=== PATIENT | male | born 1985 | race Hispanic/Latino ===

== ENCOUNTER 2022-03-23 16:34 | Emergency (ER) | payer SELFPAY ==
--- NOTE | ~2022-03-23 | XR_ITS ---
EXAM: XR foot LT min 3V DATE: 03/23/2022 17:48 HISTORY: lac to L foot, r/o FB . COMPARISON: None available. FINDINGS: Normal mineralization. No fracture or dislocation. No lytic or blastic lesion. Joint space s are maintained. No erosion or periosteal change. Soft tissues within normal limits. IMPRESSION: No acute osseous finding in the left foot. Reviewed, dictated and finalized at location K.
--- NOTE | ~2022-03-23 | CT_ITS ---
EXAMINATION: CT brain wo con DATE: 03/23/2022 17:57 INDICATION: fall, HI, possible LOC . TECHNIQUE: Computed tomography (CT) of the head was performed without intravenous contrast. The mA wa s adjusted according to patient size. Iterative reconstruction technique was employed. The dose-lengt h product was 605.33 mGy-cm. COMPARISON: None FINDINGS: No acute intracranial hemorrhage or extra-axial fluid collection. No hydrocephalus, mass, or herniation. No acute ischemic infarct. Unremarkable dural venous sinus attenuation. No acute osseous abnormality. The aerated spaces are clear. IMPRESSION: No acute intracranial process. Reviewed, dictated and finalized at location K.
--- NOTE | ~2022-03-23 | XR_ITS ---
EXAM: XR hip LT 2V w AP pelvis DATE: 03/23/2022 17:48 HISTORY: L hip pain s/p fall, lac to foot . COMPARISON: None available. FINDINGS: Normal mineralization. No fracture or dislocation. No lytic or blastic lesion. Joint space s are maintained. No erosion or periosteal change. Soft tissues within normal limits. IMPRESSION: No acute osseous finding in the left hip or pelvis. Reviewed, dictated and finalized at location K.
--- NOTE | ~2022-03-23 | CT_ITS ---
EXAMINATION: CT cervical spine wo con DATE: 03/23/2022 17:57 INDICATION: fall, HI TECHNIQUE: Computed tomography (CT) of the cervical spine was performed without intravenous contrast. Automated exposure control and iterative reconstruction technique were employed. The dose-length pro duct was 436.86 mGy-cm. COMPARISON: None FINDINGS: Vertebral Body Alignment: Intact. Craniocervical and atlantoaxial alignment: No significant degenerative change. Alignment intact. 3 mm side to side difference in lateral atlantodental intervals, which is within normal limits and consis tent with head rotation. Osseous structures/fracture: No evidence of a lytic or blastic process in the visualized spine. No e vidence of acute fracture. Cervical soft tissues: The paraspinal soft tissues planes are maintained. Degenerative changes: Degenerative changes, without severe neural foraminal or central canal narrowin g. IMPRESSION: No acute fracture or traumatic malalignment in the cervical spine. Reviewed, dictated and finalized at location K.
[2022-03-23 16:37] VITALS: BP 118/72; PULSE 93; RESP 14; TEMP 36.7; O2SAT 98
--- NOTE | 2022-03-23 17:34 | ED.GENADULT ---
HPI - General Adult General Chief complaint: Extremity Injury, Lower Stated complaint: Leg Extremity Time Seen by Provider: 03/23/22 16:57 Source: patient and family Mode of arrival: EMS Limitations: no limitations and language barrier History of Present Illness HPI narrative: Patient is a 36-year-old male who presents to the ED via EMS with report of a laceration to his left plantar foot, near his 1st toe. Patient is primarily Syriac-speaking, family member at bedside assisted in translation. Patient [place] he tripped walking over a wooden bridge. He then fell a few feet off the wooden bridge into a grayling below. There was reportedly pieces of glass in the grayling, which patient believes he cut his foot on. EMS was then called who brought the patient here. Patient has had several alcoholic drinks today. He also complains of pain to his left hip currently in the ED bed. He did hit his head in the fall and is unsure if he lost consciousness. Patient's tetanus status is unknown. No other injuries. No numbness, tingling, weakness. Related Data Allergies Allergy/AdvReac Type Severity Reaction Status Date / Time No Known Allergies Allergy Verified 03/23/22 17:04 Review of Systems Review of Systems: CONSTITUTIONAL: Denies fever. CARDIOVASCULAR: Denies chest pain. RESPIRATORY: Denies dyspnea. GASTROINTESTINAL: Denies abdominal pain. SKIN: Reports laceration to left plantar foot. MUSCULOSKELETAL: Reports pain to the left hip. NEUROLOGIC: Reports head injury, possible LOC. Denies tingling, numbness, or weakness. All systems reviewed & are unremarkable except as noted in HPI and below PMFSH Past Medical History Medical History (Updated 03/24/22 @ 02:32 by Aretha Barnes PA-C) No pertinent past medical history Surgical History Surgical History (Updated 03/23/22 @ 17:41 by Aretha Barnes PA-C) No pertinent past surgical history Social History Social History (Updated 03/23/22 @ 17:41 by Aretha Barnes PA-C) Alcohol intake: current Exam Narrative: GENERAL: Well appearing, well-nourished, non-toxic, in no acute distress. HEAD: Normocephalic, atraumatic. EYES: PERRL/EOMI. NECK: Supple. No adenopathy, no masses. No midline cervical spinal tenderness. RESPIRATORY: Airway patent, respirations nonlabored. Clear to auscultation bilaterally, no rales, rhonchi, wheezing. CARDIOVASCULAR: Regular rate and rhythm without murmurs, rubs, or gallops. Peripheral pulses 2+ and equal bilaterally. ABDOMINAL: Soft, nontender, nondistended, no hepatosplenomegaly. Normoactive BS. MUSCULOSKELETAL: Moves all extremities. Strength/ROM intact. Mild tenderness to palpation over left iliac crest. No midline thoracic or lumbar spinal tenderness. No lower extremity edema. SKIN: Warm, dry, normal color. Dried dirt on feet bilaterally. Approximately 2.5 cm laceration to plantar left foot in region of 1st metatarsal head. NEURO: A&O X3. Speech clear. Cranial nerves II-XII grossly intact. Steady gait. No ataxic movements. PSYCHIATRIC: Appropriate mood and affect. Normal interaction. Course Vital Signs Vital signs: Vital Signs Temperature 98.0 F 03/23/22 16:37 Pulse Rate 93 03/23/22 16:37 Respiratory Rate 14 03/23/22 16:37 Blood Pressure 118/72 03/23/22 16:37 Pulse Oximetry 98 03/23/22 16:37 Oxygen Delivery Room Air 03/23/22 16:37 Temperature 98.0 F 03/23/22 16:37 Pulse Rate 96 03/23/22 19:32 Respiratory Rate 16 03/23/22 19:32 Blood Pressure 117/79 03/23/22 18:31 Pulse Oximetry 97 03/23/22 19:32 Oxygen Delivery Room Air 03/23/22 16:37 Procedures Laceration Laceration 1: Date: 03/23/22 Time: 18:30 Site: lower extremity (L plantar foot) Side (If applicable): left Size (cm): 2.5 Description: linear and contaminated Depth: simple, single layer Local Anesthetic: yanique
[2022-03-23 18:31] VITALS: BP 117/79; PULSE 87; RESP 18; O2SAT 99
[2022-03-23] MEDS: TETANUS,DIPHTHERIA,AC PERTUSSIS ADULT (0.5 ML) BOOSTRIX IM (18:41)
[2022-03-23] MEDS: CEPHALEXIN 500 MG CAPSULE PO (19:31)
[2022-03-23 19:32] VITALS: PULSE 96; RESP 16; O2SAT 97
== END 2022-03-23 19:32 | disposition home or self-care (01) ==
PROVIDERS: Emergency Provider Emergency Medicine
DX: S91.312A Laceration without foreign body, left foot, initial encounter (principal); M25.552 Pain in left hip; Z23 Encounter for immunization; W01.0XXA Fall on same level from slipping, tripping and stumbling without subsequent striking against object, initial encounter; Y92.39 Other specified sports and athletic area as the place of occurrence of the external cause
CPT/HCPCS: 12001; 70450; 72125; 73502; 73630; 90471; 90715; 99284; A9270